=== PATIENT | male | born 1960 | race Hispanic/Latino ===

== ENCOUNTER 2020-01-05 13:36 | Emergency (ER) | payer OTHER ==
[2020-01-05] MEDS ORDERED: SODIUM CHLORIDE 0.9% 500ML 500 ML IV ONE (13:37)
[2020-01-05] MEDS ORDERED: SODIUM CHLORIDE 0.9% 1000ML 1,000 ML IV ONE (13:37)
[2020-01-05 13:57] LABS: BASOPHILS % (AUTO) 0.5 % (0.0-5.0); EOSINOPHILS % (AUTO) 1.8 % (0.0-8.0); HEMATOCRIT 46.6 % (42-54); LYMPHOCYTES % (AUTO) 24.3 % (21.0-51.0); MEAN CORPUSCULAR HEMOGLOBIN 30.8 pg (27.0-33.0); MEAN CORPUSCULAR HGB CONC 33.5 g/dL (32.0-36.0); MEAN CORPUSCULAR VOLUME 91.9 fL (79-99); MONOCYTES % (AUTO) 5.9 % (3.0-13.0); PLATELET COUNT (AUTO) 174 K/uL (130-400); RED BLOOD CELL COUNT(AUTO) 5.07 MIL/uL (4.50-6.20); RED CELL DISTRIBUTION WIDTH 13.6 % (11.0-15.5); WHITE BLOOD COUNT (AUTO) 14.7 K/uL (4.8-10.8)
[2020-01-05 14:08] LABS: CREATININE 0.7 mg/dL (0.5-1.5); POTASSIUM 4.1 mmol/L (3.5-5.1)
[2020-01-05 14:12] LABS: ALBUMIN 3.6 g/dL (3.5-5.0); BILIRUBIN,TOTAL 0.7 mg/dL (0.2-1.0); TOTAL PROTEIN, SERUM 7.7 g/dL (6.0-8.3)
[2020-01-05] MEDS ORDERED: IOHEXOL-350 75 ML VIAL IV ONE (14:18)
[2020-01-05 14:36] LABS: INR 0.92 (0.85-1.15)
[2020-01-05 15:02] LABS: APPEARANCE,URINE Clear (CLEAR); BILIRUBIN,URINE Negative (NEGATIVE); COLOR,URINE Yellow (YELLOW); GLUCOSE, URINE (UA) Negative (NEGATIVE); KETONES,URINE Negative (NEGATIVE); LEUKOCYTE ESTERASE ,URINE Negative (NEGATIVE); NITRATE,URINE Negative (NEGATIVE); OCCULT BLOOD,URINE Large (NEGATIVE); PROTEIN,URINE Negative (NEGATIVE)
[2020-01-05 15:09] LABS: AMPHET/METH SCREEN,URINE NEGATIVE (NEGATIVE); BARBITURATE SCREEN, URINE NEGATIVE (NEGATIVE); BENZODIAZEPINES SCREEN,URINE NEGATIVE (NEGATIVE); CANNABINOID SCREEN,URINE NEGATIVE (NEGATIVE); COCAINE SCREEN,URINE NEGATIVE (NEGATIVE); OPIATE SCREEN,URINE NEGATIVE (NEGATIVE); PHENCYCLIDINE SCREEN,URINE NEGATIVE (NEGATIVE)
[2020-01-05 15:44] LABS: BACTERIA,URINE Few /HPF (None Seen); SQUAMOUS EPITHELIAL CELL,UR 0-2 /HPF (0-2); WBC,URINE 0-1 /HPF (0-1)
== END 2020-01-05 17:07 | disposition short-term general hospital (02) ==
LOC: EDH 13:36 → EDBD 13:36 → EDH 17:07
DX: I63.9 Cerebral infarction, unspecified (principal); I65.22 Occlusion and stenosis of left carotid artery; I10 Essential (primary) hypertension; Z20.828 Contact with and (suspected) exposure to other viral communicable diseases; Z88.6 Allergy status to analgesic agent
CPT/HCPCS: 36415; 70450; 70496; 70498; 71045; 80053; 80305; 81001; 82550; 83721; 84484; 85025; 85610; 85730; 87426; 93005; 99291; J7040; Q9967; J7030

== ENCOUNTER 2020-01-26 23:08 | Observation (INO) | payer OTHER ==
[~2020-01-26] VITALS: Ht 172.7 cm; Wt 82.9 kg
[2020-01-26] MEDS ORDERED: ACETAMINOPHEN 325 MG TAB ONE (23:24)
[2020-01-26] MEDS ORDERED: METOCLOPRAMIDE 10 MG/2 ML VIAL ONE (23:48)
[2020-01-26 23:51] LABS: BASOPHILS % (AUTO) 0.5 % (0.0-5.0); EOSINOPHILS % (AUTO) 3.7 % (0.0-8.0); LYMPHOCYTES % (AUTO) 29.1 % (21.0-51.0); MEAN CORPUSCULAR HEMOGLOBIN 30.8 pg (27.0-33.0); MEAN CORPUSCULAR HGB CONC 33.6 g/dL (32.0-36.0); MEAN CORPUSCULAR VOLUME 91.5 fL (79-99); MONOCYTES % (AUTO) 5.7 % (3.0-13.0); NEUTROPHILS % (AUTO) 60.6 % (40.0-77.0); PLATELET COUNT (AUTO) 221 K/uL (130-400); RED BLOOD CELL COUNT(AUTO) 4.81 MIL/uL (4.50-6.20); RED CELL DISTRIBUTION WIDTH 12.7 % (11.0-15.5)
[2020-01-27 00:02] LABS: CREATININE 0.7 mg/dL (0.5-1.5); POTASSIUM 3.8 mmol/L (3.5-5.1)
[2020-01-27 00:08] LABS: ALBUMIN 3.5 g/dL (3.5-5.0); BILIRUBIN,TOTAL 0.4 mg/dL (0.2-1.0); TOTAL PROTEIN, SERUM 7.6 g/dL (6.0-8.3)
[2020-01-27] MEDS ORDERED: IOHEXOL 350 MG/ML 100ML INFUS..BTL IV ONE (00:08)
[2020-01-27 00:09] LABS: INR 0.9 (0.85-1.15); PARTIAL THROMBOPLASTIN TIME 28.8 SEC (26.3-35.5); PROTHROMBIN TIME 9.8 SEC (9.6-11.6)
[2020-01-27] MEDS: SODIUM CHLORIDE 0.9% 1000ML 1,000 ML IV SCH ×2 (02:56→15:03)
[2020-01-27] MEDS ORDERED: POTASSIUM CHLORIDE 10% ELIXIR 20 MEQ/15 ML UDCUP PO PRN (03:00)
[2020-01-27] MEDS ORDERED: LACTULOSE 20 GM/30 ML UDCUP PO PRN (03:00)
[2020-01-27] MEDS ORDERED: MAG HYDROX/AL HYDROX/SIMETH ES 30 ML SUSP UDCUP PO PRN (03:00)
[2020-01-27] MEDS ORDERED: ONDANSETRON HCL 4 MG/2 ML VIAL IV PRN (03:00)
[2020-01-27] MEDS ORDERED: HYDRALAZINE HCL 20 MG/ML VIAL IV PRN (03:00)
[2020-01-27] MEDS ORDERED: POTASSIUM CHLORIDE 20MEQ/100ML 100 ML IV PRN ×2 (03:00)
[2020-01-27] MEDS ORDERED: LIDOCAINE HCL-MPF 1% 2ML VIAL IV PRN (03:00)
[2020-01-27] MEDS ORDERED: POTASSIUM CHLORIDE 20 MEQ ERTAB PO PRN (03:00)
[2020-01-27 03:38] LABS: CHOLESTEROL 122 mg/dL (<200); HDL CHOLESTEROL 78 mg/dL (29-71); LDL DIRECT 64 mg/dL (0-99); TRIGLYCERIDES 105 mg/dL (30-200)
[2020-01-27 06:21] VITALS: BP 144/87
[2020-01-27] MEDS: FAMOTIDINE 20MG TAB 20 MG TAB PO SCH ×2 (06:30→20:27)
[2020-01-27] MEDS ORDERED: CLOP75TA32 PO (06:34)
[2020-01-27] MEDS ORDERED: LISI-613 PO (06:34)
[2020-01-27] MEDS ORDERED: HYDR12.54 PO (06:34)
[2020-01-27] MEDS ORDERED: ATOR40TA71 PO (06:34)
[2020-01-27] MEDS: MORPHINE SULFATE 2 MG/ML 1ML SYG IV PRN ×3 (06:40→21:07)
[2020-01-27 08:00] VITALS: BP 152/97
--- NOTE | 2020-01-27 08:30 | NUR ---
DR TOMLINSON INFORMED VIA PHONE OF NEW CONSULT
--- NOTE | 2020-01-27 09:00 | NUR ---
COGNITIVE-LINGUISTIC EVALUATION. WITHIN FUNCTIONAL LIMITS. EVALUATION: Pt AAOX3. Pt REQUESTS WANTS AND NEEDS INDEPENDENTLY. Pt INTELLIGIBLE AT 100% ACCURACY TO THE UNFAMILIAR LISTENER. Pt COMMUNICATING AT CONVERSATIONAL LEVEL WITH NO DEFICITS IDENTIFIED AT THIS TIME. Pt COMPLETED COGNITIVE-LINGUISTIC EVALUATION TARGETING: ORIENTATION, ATTENTION/CONCENTRATION, MEMORY (IMMEDIATE, SHORT-TERM AND LONG-TERM), PROBLEM SOLVING, LOGIC/REASONING/INFERENCE, THOUGHT ORGANIZATION, FUNCTIONAL MATH AND TELLING TIME. Pt ABLE TO COMPLETE TASKS WITH CORRECT AND TIMELY ANSWERS TO ALL SECTIONS. G-CODES SPOKEN LANGUAGE EXPRESSION: [id number] Addendum: 01/27/20 at 1518 by ELVIS GREEN [facility] Amended: Links added.
--- NOTE | 2020-01-27 09:30 | NUR ---
DYSPHAGIA EVAL COMPLETED. -S/S OF ASPIRATION. RECOMMEND MECHANICAL SOFT, THIN LIQUIDS; PILLS WHOLE WITH LIQUIDS; ADD GRAVY TO MEATS. FINISH ROLLS OPERATOR COORDINATED CARE WITH NURSE TODD AND NOREEN. THEY VERBALIZED AGREEMENT AND COMPLIANCE WITH RECOMMENDATIONS. Addendum: 01/27/20 at 1524 by ELVIS GREEN, [facility] Amended: Links added.
[2020-01-27 11:41] VITALS: BP 165/98
[2020-01-27] MEDS: LISINOPRIL 20 MG TABLET PO SCH (11:52)
[2020-01-27] MEDS: HYDROCHLOROTHIAZIDE 25 MG TABLET PO SCH (11:53)
[2020-01-27] MEDS: CLOPIDOGREL BISULFATE 75 MG TAB PO SCH (11:53)
--- NOTE | 2020-01-27 12:51 | NUR ---
DCP CM spoke ot pt discussed dc plans. Pt is independent prior to admission, lives at home with spouse. Denies any equipments/services. Feels safe to go back home, still drives spouse able to assist with transportation and needs as necessary. DC plan to home once stable. CM to cont to follow up. Addendum: 01/27/20 at 1252 by NGHIA CHAUHAN LVN CM Amended: Links added.
--- NOTE | 2020-01-27 13:55 | NUR ---
At 1040 Dr. Ibarra was called about Mr. Ric Humphrey. Dr. Ibarra was notified of the constant headache MrEric Humphrey was feeling. Dr. Jefferson recommended Neurontin for occipital neuralgia, Dr. Ibarra was informed and notified. At 1345 Dr. Ibarra came to visit patient and examined the pain.
[2020-01-27] MEDS ORDERED: KETOROLAC TROMETHAMINE 15MG/ML IV PRN (14:45)
[2020-01-27 16:00] VITALS: BP 159/91
--- NOTE | 2020-01-27 16:31 | NUR ---
RD NOTIFICATION Pt admitted with intractable headache, R/O TIA. Pt tolerating Heart Healthy, Mechanical Soft diet order with no report of GI distress. Pt reports good PO intake. No food allergies. Previously with diarrhea, Pt reports resolved. Monitored labs: WBC 12.0, HDL 78. Recommend continue Heart Healthy, low fat diet order RD to continue to monitor. Please notify as additional nutrition concerns arise. Thank you.
[2020-01-27] MEDS: GABAPENTIN 100 MG CAPSULE PO SCH (20:27)
[2020-01-27] MEDS: CYCLOBENZAPRINE HCL 10 MG TABLET PO SCH (20:27)
[2020-01-27 20:34] VITALS: BP 134/78
[2020-01-27] MEDS ORDERED: ATORVASTATIN CALCIUM 40 MG TABLET PO SCH (21:00)
[2020-01-28 00:06] VITALS: BP 153/96
[2020-01-28] MEDS: MORPHINE SULFATE 2 MG/ML 1ML SYG IV PRN ×2 (00:18→04:32)
[2020-01-28 03:59] LABS: BASOPHILS % (AUTO) 0.7 % (0.0-5.0); EOSINOPHILS % (AUTO) 4.1 % (0.0-8.0); HEMATOCRIT 42.3 % (42-54); LYMPHOCYTES % (AUTO) 31.7 % (21.0-51.0); MEAN CORPUSCULAR HEMOGLOBIN 30.9 pg (27.0-33.0); MEAN CORPUSCULAR HGB CONC 33.6 g/dL (32.0-36.0); MONOCYTES % (AUTO) 6.5 % (3.0-13.0); NEUTROPHILS % (AUTO) 56.7 % (40.0-77.0); PLATELET COUNT (AUTO) 200 K/uL (130-400); RED CELL DISTRIBUTION WIDTH 12.7 % (11.0-15.5); WHITE BLOOD COUNT (AUTO) 10.1 K/uL (4.8-10.8)
[2020-01-28 04:17] LABS: ALBUMIN 3.1 g/dL (3.5-5.0); BILIRUBIN,TOTAL 0.7 mg/dL (0.2-1.0); CREATININE 0.7 mg/dL (0.5-1.5); POTASSIUM 3.9 mmol/L (3.5-5.1); TOTAL PROTEIN, SERUM 6.9 g/dL (6.0-8.3)
[2020-01-28] MEDS: SODIUM CHLORIDE 0.9% 1000ML 1,000 ML IV SCH ×2 (04:26→17:05)
[2020-01-28 05:10] VITALS: BP 155/93
[2020-01-28 08:00] VITALS: BP 151/94
[2020-01-28] MEDS ORDERED: HYDROCHLOROTHIAZIDE 25 MG TABLET PO SCH (09:00)
[2020-01-28] MEDS ORDERED: CLOPIDOGREL BISULFATE 75 MG TAB PO SCH (09:00)
[2020-01-28] MEDS ORDERED: LISINOPRIL 20 MG TABLET PO SCH (09:00)
[2020-01-28] MEDS: LISINOPRIL 20 MG TABLET PO SCH (09:37)
[2020-01-28] MEDS: GABAPENTIN 100 MG CAPSULE PO SCH ×2 (09:37→14:23)
[2020-01-28] MEDS: FAMOTIDINE 20MG TAB 20 MG TAB PO SCH (09:37)
[2020-01-28] MEDS: CLOPIDOGREL BISULFATE 75 MG TAB PO SCH (09:38)
[2020-01-28] MEDS: HYDROCHLOROTHIAZIDE 25 MG TABLET PO SCH (09:38)
[2020-01-28] MEDS: CYCLOBENZAPRINE HCL 10 MG TABLET PO SCH (09:39)
[2020-01-28] MEDS ORDERED: GABA100C PO (10:37)
[2020-01-28] MEDS ORDERED: CYCL10TA7 PO (10:37)
[2020-01-28 11:48] VITALS: BP 136/69
--- NOTE | 2020-01-28 12:30 | NUR ---
FOLLOW UP COMPLETED. Pt CURRENTLY TOLERATING DIET. NO OVERT S/S OF ASPIRATION AT THIS TIME. RECOMMEND CONTINUED P.O. AT THIS TIME. Addendum: 01/28/20 at 1239 by ELVIS GREEN, [facility] ST Amended: Links added.
--- NOTE | 2020-01-28 14:30 | NUR ---
Discharge orders were placed at 1035 for Mr. Humphrey. was contacted and she told us to hold him till 5 because that is when she gets off work; (Dante Humphrey) was notified and understood instructions.
[2020-01-28 16:00] VITALS: BP 132/84
--- NOTE | 2020-01-28 18:36 | NUR ---
At 1700, the patient was given discharge instructions regarding his diagnosis, which consist of occipital neuralgia and the prescribed medications that were prescribed to him; he was prescribed cyclobenzaprine and gabapentin. Patient was instructed on the use of the medications and where to get prescribed medications and when and how much to take. Patient understood all aspects of discharge instruction.
== END 2020-01-28 17:40 | disposition home or self-care (01) ==
LOC: EDH 23:08 → EDHIP 01-27 02:51 → 3AH 01-27 04:35
PROVIDERS: ADMIT Internal Medicine; ATTEND Internal Medicine
DX: M54.81 Occipital neuralgia (principal); E78.00 Pure hypercholesterolemia, unspecified; I10 Essential (primary) hypertension; E66.9 Obesity, unspecified; F17.200 Nicotine dependence, unspecified, uncomplicated; Z86.73 Personal history of transient ischemic attack (TIA), and cerebral infarction without residual deficits; Z88.6 Allergy status to analgesic agent
CPT/HCPCS: 36415 ×3; 70450; 70496; 70498; 72141; 80053 ×2; 80061; 84484; 85025 ×2; 85610; 85730; 92522; 92610; 93005; 96361; 96374; 96375; 96376 ×2; 99285; G0378 ×23; J1885; J2765; Q9967

== ENCOUNTER 2021-01-22 16:37 | Emergency (ER) | payer OTHER ==
[~2021-01-22] VITALS: Ht 172.7 cm; Wt 92.5 kg
[~2021-01-22 16:37] MED LIST: ATOR40TA71 PO; CLOP75TA32 PO; CYCL10TA7 PO; GABA100C PO; HYDR12.54 PO; LISI20TA24 PO
[2021-01-22 16:46] VITALS: BP 146/80
[2021-01-22] MEDS ORDERED: FLUT1BLS IH (16:55)
[2021-01-22] MEDS ORDERED: LORA10TA7 PO (16:55)
[2021-01-22] MEDS ORDERED: TAMS-1 PO (16:55)
[2021-01-22] MEDS ORDERED: OMEP40CA21 PO (16:55)
[2021-01-22] MEDS ORDERED: ATOR10 PO (16:55)
[2021-01-22] MEDS ORDERED: GABA100C PO (16:55)
[2021-01-22] MEDS ORDERED: MORPHINE 2 MG SYG IVP SCH (17:00)
[2021-01-22] MEDS ORDERED: ORPHENADRINE CITRATE 30 MG/ML ML IV SCH (17:00)
[2021-01-22 17:08] LABS: BASOPHILS % (AUTO) 0.4 % (0.0-5.0); EOSINOPHILS % (AUTO) 3.3 % (0.0-8.0); HEMATOCRIT 41.5 % (42-54); LYMPHOCYTES % (AUTO) 24.9 % (21.0-51.0); MEAN CORPUSCULAR HEMOGLOBIN 31.1 pg (27.0-33.0); MEAN CORPUSCULAR HGB CONC 33.3 g/dL (32.0-36.0); MEAN CORPUSCULAR VOLUME 93.5 fL (79-99); MONOCYTES % (AUTO) 6.1 % (3.0-13.0); NEUTROPHILS % (AUTO) 64.7 % (40.0-77.0); PLATELET COUNT (AUTO) 158 K/uL (130-400); RED BLOOD CELL COUNT(AUTO) 4.44 MIL/uL (4.50-6.20); RED CELL DISTRIBUTION WIDTH 13.1 % (11.0-15.5); WHITE BLOOD COUNT (AUTO) 13.6 K/uL (4.8-10.8)
[2021-01-22 17:15] LABS: INR 0.95 (0.85-1.15); PROTHROMBIN TIME 10.4 SEC (9.6-11.6)
[2021-01-22 17:17] LABS: PARTIAL THROMBOPLASTIN TIME 27.6 SEC (26.3-35.5)
[2021-01-22 17:21] LABS: ALBUMIN 3.3 g/dL (3.5-5.0); BILIRUBIN,TOTAL 0.5 mg/dL (0.2-1.0); POTASSIUM 3.7 mmol/L (3.5-5.1)
[2021-01-22 17:34] VITALS: BP 135/84
[2021-01-22 17:34] LABS: B-TYPE NATRIURETIC PEPTIDE 17 pg/mL (0-100)
[2021-01-22 18:38] LABS: APPEARANCE,URINE Clear (CLEAR); BILIRUBIN,URINE Negative (NEGATIVE); COLOR,URINE Yellow (YELLOW); GLUCOSE, URINE (UA) Negative (NEGATIVE); KETONES,URINE Negative (NEGATIVE); LEUKOCYTE ESTERASE ,URINE Negative (NEGATIVE); NITRATE,URINE Negative (NEGATIVE); OCCULT BLOOD,URINE Negative (NEGATIVE); PH,URINE 6.5 (5.0-8.0); PROTEIN,URINE Negative (NEGATIVE)
[2021-01-22 18:43] VITALS: BP 144/79
[2021-01-22 19:44] VITALS: BP 139/71
[2021-01-22] MEDS ORDERED: DiphenhydrAMINE HCL 50 MG/ML VIAL IV ONE (21:00)
[2021-01-22] MEDS ORDERED: PROCHLORPERAZINE 10MG/2ML INJ IV ONE (21:00)
[2021-01-22 21:19] VITALS: BP 150/84
[2021-01-22] MEDS ORDERED: METH4TAB3 PO (22:50)
[2021-01-22 22:53] VITALS: BP 148/79
== END 2021-01-22 23:14 | disposition home or self-care (01) ==
LOC: EDH 16:37
DX: G43.909 Migraine, unspecified, not intractable, without status migrainosus (principal); M94.0 Chondrocostal junction syndrome [Tietze]; E78.00 Pure hypercholesterolemia, unspecified; I10 Essential (primary) hypertension; J44.9 Chronic obstructive pulmonary disease, unspecified; Z79.51 Long term (current) use of inhaled steroids; Z79.52 Long term (current) use of systemic steroids; Z79.899 Other long term (current) drug therapy; Z88.6 Allergy status to analgesic agent; Z86.73 Personal history of transient ischemic attack (TIA), and cerebral infarction without residual deficits
CPT/HCPCS: 36415; 70450; 71045; 80053; 81003; 82550; 83880; 84484; 85025; 85610; 85730; 93005; 96374; 96375; J0780; J1200